=== PATIENT | female | born 1970 | race Caucasian/White ===

== ENCOUNTER 2021-11-14 17:47 | Observation (INO) | payer OTHER, SELFPAY ==
[2021-11-14 17:58] VITALS: BP 192/90; PULSE 86; RESP 12; TEMP 36.4; O2SAT 99; BMI 30.2
--- NOTE | 2021-11-14 18:22 | DI.RAD.S_ITS ---
PROCEDURE: XR CHEST 1V INDICATIONS: dizziness TECHNIQUE: One view of the chest was acquired. COMPARISON: None. FINDINGS: Surgical changes and devices: None. Lungs and pleura: Lungs are clear. No pleural effusions or pneumothorax. Mediastinum: Mediastinal contours appear normal. Heart size is normal. Bones and chest wall: No suspicious bony lesions. Overlying soft tissues appear unremarkable. IMPRESSION: No acute cardiopulmonary pathology. Dictated by: Luke Jeffery M.D. on 11/14/2021 at 18:59 Approved by: Luke Jeffery M.D. on 11/14/2021 at 19:00
--- NOTE | 2021-11-14 18:23 | DI.CT.S_ITS ---
PROCEDURE: CT ANGIO HEAD AND NECK INDICATIONS: dizziness, trouble with speech after neck manipulation TECHNIQUE: Pre-contrast 4.5 mm thick sections acquired from the foramen magnum to the vertex. After the administration of intravenous contrast, 1 mm thick sections acquired from the aortic arch through the [place] of [place]. Post-contrast 4.5 mm thick sections then re-acquired from the foramen magnum to the vertex. 3-dimensional mvhyhpk-izruhmlbs-orrtwitccm (MIP) and/or volume rendering reformats were acquired of the central intracranial vasculature and neck separately. For radiation dose reduction, the following was used: automated exposure control, adjustment of mA and/or kV according to patient size. COMPARISON: None. FINDINGS: Image quality: Excellent. BRAIN: CSF spaces: Ventricles are normal in size and shape. Basal cisterns are patent. No extra-axial fluid collections. Brain: No midline shift. No intracranial bleeds or masses. Santos-white matter interface appears intact. No area of abnormal enhancement is seen Skull and face: Calvarium and facial bones appear intact, without suspicious lesions. Orbits appear normal. Sinuses: Sinuses and mastoids are clear. HEAD CT ANGIOGRAPHY: Anterior circulation: Intracranial internal carotid arteries are normal in size and flow. The flow within the paired anterior cerebral arteries is normal and symmetric. The flow within the middle cerebral arteries is normal and symmetric. The anterior communicating artery is seen. No aneurysms are seen. Posterior circulation: Visualized portions of the vertebral arteries demonstrate normal caliber, and join to form a normal appearing basilar artery. Flow within the posterior cerebral arteries is normal and symmetric. No aneurysms are seen. NECK CT ANGIOGRAPHY: Carotid system: The great vessels demonstrate a conventional anatomy as they arise from the aortic arch. The origins of the common carotid arteries appear patent. The common carotid arteries demonstrate normal caliber and courses. The bifurcation regions are both widely patent. The internal carotid arteries demonstrate normal calibers and courses. Posterior circulation: The origins of the vertebral arteries both appear widely patent. The more superior extracranial portions of both vertebral arteries also demonstrate normal courses and calibers. They join to form a normal appearing basilar artery. Soft tissues: Visualized neck soft tissues demonstrate no suspicious abnormalities. Bones: No suspicious bony lesions. Visualized cervical spine appears normally aligned. IMPRESSION: 1. No CT evidence of acute intracranial pathology. No area of abnormal intracranial enhancement. 2. No hemodynamically significant stenosis or aneurysm is seen in intracranial circulation. 3. No hemodynamically significant stenosis is noted in bilateral neck arteries. No evidence of neck artery dissection. Any quantitative measurements of stenosis were performed using NASCET criteria. Dictated by: Luke Jfefery M.D. on 11/14/2021 at 19:30 Approved by: Luke Jeffery M.D. on 11/14/2021 at 19:32
--- NOTE | 2021-11-14 18:36 | ED.DIZZY ---
HPI - Dizziness General Chief Complaint: Dizziness Stated Complaint: DIZZY DOES NOT FEEL RIGHT Time Seen by Provider: 11/14/21 18:21 Mode of arrival: Ambulatory History of Present Illness HPI Narrative: 51-year-old female medical history presents with family in the chief complaint of multiple neurologic symptoms present earlier today that are now gone. She states that she woke up and was in her normal state of health and this morning went to see a therapist and had a manipulation of her neck. She denies any symptoms immediately thereafter but at about 430 this afternoon she developed dizziness with some blurred vision and trouble finding words. she denies obvious unilateral symptoms such as numbness, tingling or weakness. She states that the symptoms stated above lasted about 15 minutes and had largely improved by her arrival. She denies any chest pain or shortness of breath. She had some nausea but denies any vomiting. She has not activated as a code stroke given her lack of symptoms and no obvious unilateral signs Related Data Home Medications Medication Instructions Recorded Confirmed No Known Home Medications 11/14/21 11/14/21 Allergies Allergy/AdvReac Type Severity Reaction Status Date / Time No Known Drug Allergies Allergy Verified 11/14/21 18:00 Review of Systems Review of Systems Narrative: GENERAL: Denies chills, fatigue, malaise, fever, sweats. HEENT: Denies sinus pain, ear pain, sore throat, difficulty swallowing, dizziness. RESPIRATORY: Denies dyspnea, cough, wheezing, hemoptysis, sputum. CARDIOVASCULAR: Denies chest pain, palpitations, orthopnea, edema, GASTROINTESTINAL: Denies nausea, vomiting, abdominal pain, diarrhea, constipation, melena. : Denies dysuria, frequency, incontinence, hematuria, urinary retention. MUSCULOSKELETAL: denies weakness, joint pain, or bony pain SKIN: Denies rash, skin lesions, or other NEUROLOGIC: see HPI PSYCHIATRIC: No concerning psychosocial issues. 12 point review of systems is negative except for those stated above Patient History Surgical History H/O Achilles tendon repair Social History Smoking Status: Never smoker Smoking Status: Never smoker Substance Use Type: does not use Exam Narrative Exam Narrative: GENERAL: [51] year old patient appears stated age. Well-developed patient, in mild distress. HEAD: Atraumatic. Normocephalic. EYES: Pupils equal round and reactive. Extraocular motions intact. No scleral icterus. No injection or drainage. ENT: Nose without bleeding, purulent drainage. Throat without erythema, tonsillar hypertrophy or exudate. Airway patent. NECK: Trachea midline. Non tender CARDIOVASCULAR: Regular rate and rhythm without murmurs, gallops, or rubs. RESPIRATORY: Clear to auscultation. Breath sounds equal bilaterally. No wheezes, rales, or rhonchi. GASTROINTESTINAL: Abdomen soft, non-tender, nondistended. EXTREMITIES: No edema or joint tenderness. BACK: Nontender without deformity or crepitance. No flank tenderness. NEURO: AOx3. SKIN: No rash or erythema of visible areas Initial Vital Signs Initial Vital Signs: Vital Signs Temperature 97.6 F 11/14/21 17:58 Pulse Rate 86 11/14/21 17:58 Respiratory Rate 12 11/14/21 17:58 Blood Pressure 192/90 H 11/14/21 17:58 Pulse Oximetry 99 11/14/21 17:58 Course Course Course Narrative: Patient does feel significant improvement over the course of the visit, as noted she had very minimal symptoms at time arrival. Initial blood pressure in the 190s has improved to the 140s. she has story clean is not hypertensive and though her symptoms are largely improved there is some residual dizziness. We did discuss the likelihood of high blood pressure being because of all of her symptoms but the temporal relationship this not as convincing is out of like, furthermore difficulty with word finding and confusion are a bit atypical. Given her recent manipulation CT angiography of head and neck was performed which showed no significant findings. Patient requires hospitalization for complete stroke workup and ongoing management of symptoms and vital signs Orders Ordered: ED Orders 11/14/21 21:55 COVID19 -Nasal RAPID/Pre-Proc Stat Acetaminophen (Acetaminophen 325 Mg Tablet) 650 mg PO Q6HR PRN PRN Reason: Fever/Mild Pain (1-3) Aspirin (Aspirin Ec 81 Mg Tablet) 81 mg PO DAILY SISI Atorvastatin Calcium (Atorvastatin 20 Mg Tablet) 80 mg PO BEDTIME SISI Clopidogrel Bisulfate (Clopidogrel 75 Mg Tablet) 75 mg PO DAILY SISI Enoxaparin Sodium (Enoxaparin 40 Mg/0.4 Ml Syringe) 40 mg SUBCUT DAILY SISI Sodium Chloride (Normal Saline 0.9%) 1,000 mls @ 150 mls/hr IV CONT SISI Last Admin: 11/15/21 02:15 Dose: Not Given Documented by: YOVANI Naloxone HCl (Naloxone 0.4 Mg/Ml Vial) 0.2 mg IV Q2MIN PRN PRN Reason: Opiate Reversal Ondansetron HCl (Ondansetron 4 Mg/2 Ml Inj) 4 mg IV Q8HR PRN PRN Reason: Nausea And Vomiting Discontinued Medications Aspirin (Aspirin 81 Mg Chew Tab) 324 mg PO NOW ONE Stop: 11/14/21 21:32 Last Admin: 11/14/21 21:49 Dose: 324 mg Documented by: MAKENZIE Vital Signs Vital signs: Vital Signs - 8 hr 11/14/21 20:48 Temperature 98.4 F Pulse Rate 70 Respiratory Rate 18 Blood Pressure 160/86 H Pulse Oximetry 99 MDM - Dizziness Lab Data Result diagrams: 11/14/21 18:36 11/14/21 18:36 Labs: Lab Results 11/14/21 11/14/21 11/14/21 Range/Units 18:36 18:36 18:36 WBC 10.9 (4.5-11.0) X10^3/uL RBC 4.38 (4.0-5.2) X10^6/uL Hgb 13.7 (12.0-16.0) g/dL Hct 38.3 (36-46) % MCV 87.4 (80-100) fL MCH 31.2 (26-34) PG MCHC 35.7 (30-36) % RDW 13.4 (11.6-14.8) % Plt Count 304 (150-400) X10^3/uL Neut % (Auto) 71.4 (50-75) % Lymph % (Auto) 20.1 L (25-40) % [place] % (Auto) 6.7 (3-14) % Eos % (Auto) 0.9 L (2-4) % Baso % (Auto) 0.9 (0-2) % Neut # (Auto) 7800 H (6446-1581) /uL Lymph # (Auto) 2200 (7162-5248) /uL [place] # (Auto) 700 (0-900) /uL Eos # (Auto) 100 (0-450) /uL Baso # (Auto) 100 (0-100) /uL PT 11.5 (10.1-12.7) SECONDS INR 1.0 (0.9-1.3) Sodium 139 (137-145) mmol/L Potassium 3.6 (3.4-5.1) mmol/L Chloride 104 (98-107) mmol/L Carbon Dioxide 25 (22-32) mmol/L BUN 9 (7-17) mg/dL Creatinine 0.80 (0.52-1.04) mg/dL Estimated GFR > 60 (>60) mL/min BUN/Creatinine Ratio 11.3 (6-22) Glucose 110 H (70-100) mg/dL Hemoglobin A1c (4.0-6.0) % Calcium 8.5 (8.4-10.2) mg/dL Total Bilirubin 0.5 (0.2-1.3) mg/dL AST 25 (14-36) IU/L ALT 21 (<35) IU/L Alkaline Phosphatase 81 (38-126) U/L Troponin I < 0.012 (0.01-0.034) ng/mL Total Protein 7.2 (6.3-8.2) g/dL Albumin 4.4 (3.5-5.0) g/dL Globulin 2.8 (1.7-4.1) g/dL Albumin/Globulin Ratio 1.6 (1.0-2.8) SARS-CoV-2 (PCR) (Negative) 11/14/21 11/14/21 Range/Units 18:36 21:55 WBC (4.5-11.0) X10^3/uL RBC (4.0-5.2) X10^6/uL Hgb (12.0-16.0) g/dL Hct (36-46) % MCV (80-100) fL MCH (26-34) PG MCHC (30-36) % RDW (11.6-14.8) % Plt Count (150-400) X10^3/uL Neut % (Auto) (50-75) % Lymph % (Auto) (25-40) % [place] % (Auto) (3-14) % Eos % (Auto) (2-4) % Baso % (Auto) (0-2) % Neut # (Auto) (9872-2038) /uL Lymph # (Auto) (3504-7437) /uL [place] # (Auto) (0-900) /uL Eos # (Auto) (0-450) /uL Baso # (Auto) (0-100) /uL PT (10.1-12.7) SECONDS INR (0.9-1.3) Sodium (137-145) mmol/L Potassium (3.4-5.1) mmol/L Chloride (98-107) mmol/L Carbon Dioxide (22-32) mmol/L BUN (7-17) mg/dL Creatinine (0.52-1.04) mg/dL Estimated GFR (>60) mL/min BUN/Creatinine Ratio (6-22) Glucose (70-100) mg/dL Hemoglobin A1c 5.1 (4.0-6.0) % Calcium (8.4-10.2) mg/dL Total Bilirubin (0.2-1.3) mg/dL AST (14-36) IU/L ALT (<35) IU/L Alkaline Phosphatase (38-126) U/L Troponin I (0.01-0.034) ng/mL Total Protein (6.3-8.2) g/dL Albumin (3.5-5.0) g/dL Globulin (1.7-4.1) g/dL Albumin/Globulin Ratio (1.0-2.8) SARS-CoV-2 (PCR) Negative (Negative) Imaging Data Chest x-ray: Radiologist's Impression: Launch?[place] [address] XRay Report Signed Patient: Suzanne Weller MR#: [id number] : 1970 Acct:[id number] Age/Sex: 51 / F Date of Service: 11/14/21 Loc: ED Accession Number: [id number] ?? Procedure: XR chest 1V Ordering Provider: Valentino Zamora D.O. PROCEDURE:? XR CHEST 1V ? INDICATIONS:? dizziness ? TECHNIQUE:? One view of the chest was acquired.? ? COMPARISON:? None. ? FINDINGS:? ? Surgical changes and devices:? None.? ? Lungs and pleura:? Lungs are clear.? No pleural effusions or pneumothorax.? ? Mediastinum:? Mediastinal contours appear normal.? Heart size is normal.? ? Bones and chest wall:? No suspicious bony lesions.? Overlying soft tissues appear unremarkable.? ? IMPRESSION:? No acute cardiopulmonary pathology. ? ? Dictated by: Luke Jeffery M.D. on 11/14/2021 at 18:59 ? ? Approved by: Luke Jeffery M.D. on 11/14/2021 at 19:00? CTA - brain/neck: Radiologist's Impression: [address] [address] [address] Scan Report Signed Patient: Suzanne Weller MR#: [id number] : 1970 Acct:[id number] Age/Sex: 51 / F Date of Service: 11/14/21 Loc: ED Accession Number: [id number] ?? Procedure: CT angio head and neck Ordering Provider: Valentino Zamora D.O. PROCEDURE:? CT ANGIO HEAD AND NECK ? INDICATIONS:? dizziness, trouble with speech after neck manipulation ? TECHNIQUE:? Pre-contrast 4.5 mm thick sections acquired from the foramen magnum to the vertex.? After the administration of intravenous contrast, 1 mm thick sections acquired from the aortic arch through the [place] of [place].? Post-contrast 4.5 mm thick sections then re-acquired from the foramen magnum to the vertex.? 3-dimensional pdgzixz-ogvfroazc-lqsjokwztf (MIP) and/or volume rendering reformats were acquired of the central intracranial vasculature and neck separately. For radiation dose reduction, the following was used:? automated exposure control, adjustment of mA and/or kV according to patient size.? ? COMPARISON:? None. ? FINDINGS:? Image quality:? Excellent.? ? BRAIN:? CSF spaces:? Ventricles are normal in size and shape.? Basal cisterns are patent.? No extra-axial fluid collections.? ? Brain:? No midline shift.? No intracranial bleeds or masses.? Santos-white matter interface appears intact.? No area of abnormal enhancement is seen ? Skull and face:? Calvarium and facial bones appear intact, without suspicious lesions.? Orbits appear normal.? ? Sinuses:? Sinuses and mastoids are clear.? ? HEAD CT ANGIOGRAPHY:? Anterior circulation:? Intracranial internal carotid arteries are normal in size and flow.? The flow within the paired anterior cerebral arteries is normal and symmetric.? The flow within the middle cerebral arteries is normal and symmetric.? The anterior communicating artery is seen.? No aneurysms are seen.? ? Posterior circulation:? Visualized portions of the vertebral arteries demonstrate normal caliber, and join to form a normal appearing basilar artery.? Flow within the posterior cerebral arteries is normal and symmetric.? No aneurysms are seen.? ? NECK CT ANGIOGRAPHY:? Carotid system:? The great vessels demonstrate a conventional anatomy as they arise from the aortic arch.? The origins of the common carotid arteries appear patent.? The common carotid arteries demonstrate normal caliber and courses.? The bifurcation regions are both widely patent.? The internal carotid arteries demonstrate normal calibers and courses.? ? Posterior circulation:? The origins of the vertebral arteries both appear widely patent.? The more superior extracranial portions of both vertebral arteries also demonstrate normal courses and calibers.? They join to form a normal appearing basilar artery.? ? Soft tissues:? Visualized neck soft tissues demonstrate no suspicious abnormalities.? ? Bones:? No suspicious bony lesions.? Visualized cervical spine appears normally aligned.? IMPRESSION:? 1. No CT evidence of acute intracranial pathology.? No area of abnormal intracranial enhancement. 2. No hemodynamically significant stenosis or aneurysm is seen in intracranial circulation. 3. No hemodynamically significant stenosis is noted in bilateral neck arteries.? No evidence of neck artery dissection.? ? Any quantitative measurements of stenosis were performed using NASCET criteria.? ? ? Dictated by: Luke Jeffery M.D. on 11/14/2021 at 19:30 ? ? Approved by: Luke Jeffery M.D. on 11/14/2021 at 19:32 ? Discharge Plan Departure Patient Disposition: Admitted as Observation Clinical Impression: Transient cerebral ischemia Admit Date/Time: 11/14/21 22:04 Admit Provider: Shoshana Mo
[2021-11-14 18:54] LABS: Prothrombin Time 11.5 SECONDS (10.1-12.7)
[2021-11-14 18:56] LABS: Add Manual Diff / Slide Review NO; Basophils Absolute Auto 100 /uL (0-100); Basophils Percent Auto 0.9 % (0-2); Eosinophils Absolute Auto 100 /uL (0-450); Eosinophils Percent Auto 0.9 % (2-4); Hematocrit 38.3 % (36-46); Hemoglobin 13.7 g/dL (12.0-16.0); Lymphocytes Absolute Auto 2200 /uL (1100-4500); Lymphocytes Percent Auto 20.1 % (25-40); Mean Corpuscular HGB Conc 35.7 % (30-36); Mean Corpuscular Hemoglobin 31.2 PG (26-34); Mean Corpuscular Volume 87.4 fL (80-100); Monocytes Absolute Auto 700 /uL (0-900); Monocytes Percent Auto 6.7 % (3-14); Neutrophils Absolute Auto 7800 /uL (1500-7000); Neutrophils Percent Auto 71.4 % (50-75); Platelet Count 304 X10^3/uL (150-400); Red Blood Cell Count 4.38 X10^6/uL (4.0-5.2); Red Cell Distribution Width 13.4 % (11.6-14.8); White Blood Cell Count 10.9 X10^3/uL (4.5-11.0)
[2021-11-14 19:04] LABS: Alanine Aminotransferase 21 IU/L (<35); Albumin 4.4 g/dL (3.5-5.0); Albumin Globulin Ratio 1.6 (1.0-2.8); Alkaline Phosphatase 81 U/L (38-126); Aspartate Aminotransferase 25 IU/L (14-36); BUN Creatinine Ratio 11.3 (6-22); Bilirubin Total 0.5 mg/dL (0.2-1.3); Blood Urea Nitrogen 9 mg/dL (7-17); Calcium 8.5 mg/dL (8.4-10.2); Carbon Dioxide 25 mmol/L (22-32); Chloride 104 mmol/L (98-107); Estimated Glomerular Filt Rate > 60 mL/min (>60); Globulin 2.8 g/dL (1.7-4.1); Glucose 110 mg/dL (70-100); HEMOLYSIS < 15 (0-50); Potassium 3.6 mmol/L (3.4-5.1); Sodium 139 mmol/L (137-145); Total Protein 7.2 g/dL (6.3-8.2)
[2021-11-14 19:14] LABS: Troponin I < 0.012 ng/mL (0.01-0.034)
[2021-11-14 20:48] VITALS: BP 160/86; PULSE 70; RESP 18; TEMP 36.9; O2SAT 99
[2021-11-14] MEDS: ASPIRIN 81 MG CHEW TAB 324 MG PO (21:49)
--- NOTE | 2021-11-14 21:58 | PC.NURSE ---
Patient had her neck manipulated around 0830 this morning, she felt find up until about 1630 had dizziness and abnormal speech. Upon arrival to ER speech was clear however patient felt like she could pass out and still having a hard time talking Patient reports blood pressure is normally low.
[2021-11-14 22:12] LABS: COVID19 -Nasal RAPID Negative (Negative)
[2021-11-14 23:18] VITALS: BMI 30.2
[2021-11-14 23:40] VITALS: BP 149/79; PULSE 65; RESP 16; TEMP 36.1; O2SAT 98
--- NOTE | 2021-11-15 01:02 | P.HP_ITS ---
History of Present Illness History of Present Illness Date Patient Seen: 11/15/21 Time Patient Seen: 01:13 Chief complaint: Suspected TIA Narrative: Suzanne Magaña is a 51-year-old female who lives in [place] and was in town at her parent's summer cabin in [facility] was returning to [place] when she had sudden onset dizziness, blurred vision, and word-finding issuesm her stated she was speaking gibberish. Her symptoms resolved by the time she arrived at the emergency department. She stated that the symptoms started at 4:30 a.m. this afternoon and by the time she arrived to the emergency department she was asymptomatic and did not meet criteria for thrombolysis. She said that she underwent a Shiatsu session and her Shiatsu practitioner manipulated manipulated her neck with high velocity adjustments around 0830 this morning of 11/14. She felt find up until about 1630, then experienced dizziness and abnormal speech. Upon arrival to ER speech was clear however patient felt like she could pass out and still having a hard time talking.? Patient reports her blood pressure is normally low, though on presentation to the ED, it was 192/90. Chest x-ray ordered in the ED was negative for any acute cardiopulmonary process. CTA of the head neck reported no evidence of acute intracranial pathology, no hemodynamically significant stenosis or aneurysm in the intracranial circulation and no hemodynamically significant stenosis in the bilateral neck arteries or evidence of neck artery dissection. She is afebrile, blood pressure 144/73, heart rate 63, respiratory rate 17, oxygen saturation 98% on room air, she weighs 74.5 kg with a BMI of 30.2. CBC is unremarkable, she had a glucose of 110, A1c is 5.1, and COVID-19 PCR is negative. Lipid panel is pending. Patient History Surgical History H/O Achilles tendon repair Family & Social History Family History (Updated 11/15/21 @ 06:18 by ASHLEY Roberts) Father CVA (cerebral vascular accident) Mother Alive and well Safety & Behavioral: Feels Safe in Current Yes Environment Been Physically Hurt or No Threatened By a Person Tobacco & Substance use: Smoking Status Never smoker Substance Use Type does not use Meds Home Medications and Allergies Home Medications Medication Instructions Recorded Confirmed Type No Known Home Medications 11/14/21 11/14/21 History Allergies Allergy/AdvReac Type Severity Reaction Status Date / Time No Known Drug Allergies Allergy Verified 11/14/21 18:00 Review of Systems Review of Systems ROS: Yes All systems reviewed with the patient and are negative except as otherwise documented Exam Vital Signs (past 8 hours): - 11/14/21 17:58 11/14/21 20:48 Temperature 97.6 F 98.4 F Pulse Rate 86 70 Respiratory Rate 12 18 Blood Pressure 192/90 H 160/86 H Pulse Oximetry 99 99 Oxygen Delivery Method Room Air Narrative Exam Narrative: Gen: Alert, oriented, well-developed 51 y.o. female, healthy appearing HEENT: normocephalic, atraumatic, conjunctiva clear, sclera non-icteric, oral mucosa pink and moist Neck: supple, full ROM, no JVD, trachea is midline Resp: Lungs CTA, non-labored breathing CV: RRR, no murmur or rubs Abd: soft, non-tender, normoactive BTs Skin: no lesions or rashes, dry and intact Neuro: Alert and oriented X 4 w/no focal deficits. Speech clear and coherent. Extremities: moves all 4 extremities, is ambulatory, negative Mikayla?s sign Psyche: normal mood and affect. Objective Labs Result Diagrams: 11/14/21 18:36 11/14/21 18:36 Labs: Laboratory Results - last 24 hr 11/14/21 11/14/21 11/14/21 18:36 18:36 18:36 WBC 10.9 RBC 4.38 Hgb 13.7 Hct 38.3 MCV 87.4 MCH 31.2 MCHC 35.7 RDW 13.4 Plt Count 304 Neut % (Auto) 71.4 Lymph % (Auto) 20.1 L [place] % (Auto) 6.7 Eos % (Auto) 0.9 L Baso % (Auto) 0.9 Neut # (Auto) 7800 H Lymph # (Auto) 2200 [place] # (Auto) 700 Eos # (Auto) 100 Baso # (Auto) 100 PT 11.5 INR 1.0 Sodium 139 Potassium 3.6 Chloride 104 Carbon Dioxide 25 BUN 9 Creatinine 0.80 Estimated GFR > 60 BUN/Creatinine Ratio 11.3 Glucose 110 H Calcium 8.5 Total Bilirubin 0.5 AST 25 ALT 21 Alkaline Phosphatase 81 Troponin I < 0.012 Total Protein 7.2 Albumin 4.4 Globulin 2.8 Albumin/Globulin Ratio 1.6 SARS-CoV-2 (PCR) 11/14/21 21:55 WBC RBC Hgb Hct MCV MCH MCHC RDW Plt Count Neut % (Auto) Lymph % (Auto) [place] % (Auto) Eos % (Auto) Baso % (Auto) Neut # (Auto) Lymph # (Auto) [place] # (Auto) Eos # (Auto) Baso # (Auto) PT INR Sodium Potassium Chloride Carbon Dioxide BUN Creatinine Estimated GFR BUN/Creatinine Ratio Glucose Calcium Total Bilirubin AST ALT Alkaline Phosphatase Troponin I Total Protein Albumin Globulin Albumin/Globulin Ratio SARS-CoV-2 (PCR) Negative Assessment & Plan Assessment & Plan narrative: Suzanne Weller is observed overnight for completion of a TIA workup. 1. Rule out TIA * Cardiac telemetry * NIH score greater than 5 [X]no NIH scoring and neuro checks q 4 hours * Dual antiplatelet therapy: No[] Yes[X] initiate dual antiplatelet therapy with clopidogrel 75 mg p.o. daily and aspirin 81 mg p.o. daily * MR stroke scheduled for 11/15 * Complete Echo with bubble study for * ST evaluation 2. Hypertension, acute with an admission bp of 192/90, present on admission * Allow for permissive hypertension of 220/110 HR 60 to allow for brain perfusion * IV labetolol if his systolic exceeds 220 or diastolic greater than 105. 3. HLD * Fasting lipid panel, pending for 0500 labs * Atorvastatin 40 mg po at bedtime 4. Risk stratification * Fasting lipid panel pending for the morning * A1c is 5.1 %,not diabetic VTE Prophylaxis: Wells risk score 0 [X]Enoxaparin 40 mg subQ once daily Bilateral SCDs Patient is placed into observation as her stay is not expected to exceed 2 midnights. FEN: IV fluids: saline lock, diet: heart healthy, labs: CBC, C/BMP, liver enzymes, [facility] None Dispo: Likely d/c to home w/f/u with her PCP Code status: Full Code as discussed with the patient who identifies her , Ruth her surrogate and POA. [X] I have utilized all available immediate resources to obtain, update, or review of the patient's current medications COVID-19 COVID-19 status: Negative Result date/Date tested (Pos, Neg/Pending): 11/14/21 Quality VTE Deep Vein Thrombosis/Pulmonary Embolism Present on Admission: No MIPS - Admit I confirm the patient?s Advance Care Plan is present, Code status is documented, Surrogate decision maker is in patient?s record [If Yes, STOP here]: Yes MIPS - DC The patient has current or prior documentation of left ventricular ejection fraction (LVEF) less than 40%, or moderate or severely depressed left ventricular systolic function.: No
--- NOTE | 2021-11-15 01:03 | DI.MRI.S_ITS ---
PROCEDURE: MR HEAD/BRAIN WO CON INDICATIONS: transient aphasia TECHNIQUE: Noncontrast axial T1 spin echo, axial T2 fast spin echo, sagittal and axial FLAIR, coronal T2 fast spin echo, axial gradient echo, axial diffusion and ADC through the brain. COMPARISON: None. FINDINGS: Image quality: Excellent. CSF Spaces: Basal cisterns are patent. No extra-axial fluid collections. Ventricles are normal in size and shape. Brain: No intracranial masses or hemorrhage. [place]/white matter interface is normal. Brainstem appears normal. Diffusion-weighted images demonstrate no acute infarct. Normal intravascular flow voids are present. Skull and face: Calvarium has normal marrow signal. Orbits appear normal. Sinuses: Sinuses and mastoids are clear. IMPRESSION: Normal MRI of the brain Approved by: Joe Rowland M.D. on 11/15/2021 at 9:05
--- NOTE | 2021-11-15 01:10 | DI.ECHO.S_ITS ---
[facility] +---------+ : : [address] [place] : : : : [id number] : : : : Phone: [phone]+ Echocardiogram Report + + :Name: CR FAM Study Date: 11/15/2021 Height: 62 in : :[facility] ReadingLocation: Weight: 164 lb : : Gender: Female BSA: 1.8 m2 : :: 1970 Age: 51 yrs BP: 121/71 mmHg: :Reason For Study: TIA : :Ordering Physician: JOSE JUAN, : :SHAKEEL Performed By: Zane Shahid : :Referring: SHAKEEL MANZANO : + + Interpretation Summary Normal sinus rhythm. Normal LV size, wall thickness, wall motion and LV systolic function. EF is 60-65%. Normal chamber sizes. No significant valvular abnormalities. No PFO based on bubble study. No source of embolism found. Procedure: A two-dimensional transthoracic echocardiogram with color flow and Doppler was performed. The study quality was technically adequate. There is no prior echocardiogram noted for this patient. A saline contrast injection was performed to assess for cardiac shunting. Left Ventricle: The left ventricle is normal in size and wall thickness. Left ventricular systolic function is normal. The ejection fraction is estimated to be 55-60%. There are no focal wall motion abnormalities. Diastolic parameters suggest probable normal left ventricular diastolic function and normal filling pressures. Right Ventricle: The right ventricle is normal in size and function. Atria: Both atria are normal in size. The interatrial septum grossly appears intact with no obvious evidence for an atrial septal defect. Injection of contrast documented no interatrial shunt. Mitral Valve: The mitral valve is normal in structure and function. There is no mitral regurgitation noted. Aortic Valve: The aortic valve is normal in structure and function. No aortic regurgitation is present. Tricuspid Valve: The tricuspid valve is normal in structure and function. No tricuspid regurgitation. Pulmonary artery pressures cannot be estimated because of the lack of a measurable TR jet velocity. Pulmonic Valve: The pulmonic valve is normal in structure and function. There is trace pulmonic regurgitation. Great Vessels: The aortic root is normal size. The dimensions of the ascending aorta are normal. The IVC is of normal diameter and collapses greater than 50% with a sniff. This suggests a low right atrial pressure of 3 mm Hg. Pericardium/ Pleura There is no pericardial effusion. There is no pleural effusion. MMode/2D Measurements & Calculations LVIDd: 4.9 cm LVOT diam: 1.9 cm LVIDs: 3.5 cm Ao root diam: 2.9 cm FS: 29.3 % asc Aorta Diam: 3.3 cm IVSd: 0.98 cm LVPWd: 0.79 cm LV helms. diameter/BSA (cm/m^2): 2.8 LV sys. diameter/BSA (cm/m^2): 2.0 LA A2 area: 19.3 cm2 RA long axis: 4.3 cm LA A4 area: 16.7 cm2 RA area: 12.8 cm2 LA length (vol): 4.7 cm RA vol: 32.1 ml LA vol: 57.6 ml RA : 18.3 ml/m2 LA vol index: 32.8 ml/m2 TAPSE: 2.6 cm Doppler Measurements & Calculations Ao V2 max: 144.4 cm/sec LVOT Max Maury: 116.4 cm/sec Ao V2 mean: 100.8 cm/sec LV V1 max P.4 mmHg Ao max P.3 mmHg LV V1 VTI: 23.9 cm Ao mean P.5 mmHg SIRISHA(I,D): 2.5 cm2 Ao V2 VTI: 27.3 cm SIRISHA(V,D): 2.3 cm2 sev ratio: 0.88 SIRISHA indexed to BSA (cm^2/m^2): 1.4 MV E max maury: 83.1 cm/sec SV(LVOT): 68.4 ml MV A max maury: 76.7 cm/sec MV E/A: 1.1 Med Peak E' Maury: 6.7 cm/sec E/E' med: 12.5 Lat Peak E' Maury: 10.2 cm/sec E/E' lat: 8.1 E/e' average: 10.3 MV dec time: 0.21 sec Electronically signed by: Katie Mo M.D. on Reading Physician:11/15/2021 01:19 PM
[2021-11-15 01:50] LABS: Hemoglobin A1C% w Est Avg Glu 5.1 % (4.0-6.0)
[2021-11-15 05:00] VITALS: BP 144/73; PULSE 63; RESP 17; TEMP 36.1; O2SAT 98
[2021-11-15 06:26] LABS: BUN Creatinine Ratio 9.1 (6-22); Blood Urea Nitrogen 7 mg/dL (7-17); Calcium 8.6 mg/dL (8.4-10.2); Carbon Dioxide 27 mmol/L (22-32); Chloride 104 mmol/L (98-107); Estimated Glomerular Filt Rate > 60 mL/min (>60); Glucose 138 mg/dL (70-100); HEMOLYSIS < 15 (0-50); Hematocrit 37.7 % (36-46); Hemoglobin 13.1 g/dL (12.0-16.0); Mean Corpuscular HGB Conc 34.6 % (30-36); Mean Corpuscular Hemoglobin 30.4 PG (26-34); Mean Corpuscular Volume 87.9 fL (80-100); Platelet Count 262 X10^3/uL (150-400); Potassium 3.8 mmol/L (3.4-5.1); Red Blood Cell Count 4.29 X10^6/uL (4.0-5.2); Red Cell Distribution Width 13.5 % (11.6-14.8); Sodium 137 mmol/L (137-145); White Blood Cell Count 7.8 X10^3/uL (4.5-11.0)
[2021-11-15 06:30] LABS: Add Manual Diff / Slide Review YES
[2021-11-15 06:33] LABS: Cholesterol 151 mg/dL (140-199); HDL Cholesterol 47 mg/dL (40-60); LDL Cholesterol Calculated 80 mg/dL (<100); Magnesium 1.9 mg/dL (1.6-2.3); Triglycerides 121 mg/dL (35-150)
[2021-11-15 07:06] LABS: Neutrophils Absolute Manual 4992 /uL (3000-5900); Total Cells Counted 100
[2021-11-15 07:08] LABS: RBC Morphology Normal Morphology
[2021-11-15 08:33] VITALS: BP 121/71; PULSE 66; RESP 14; TEMP 36.1; O2SAT 96
[2021-11-15] MEDS: ENOXAPARIN 40 MG/0.4 ML SYRINGE SUBCUT (09:01)
[2021-11-15] MEDS: CLOPIDOGREL 75 MG TABLET PO (09:01)
[2021-11-15] MEDS: ASPIRIN EC 81 MG TABLET PO (09:01)
--- NOTE | 2021-11-15 10:37 | P.DS_ITS ---
History of Present Illness History of Present Illness Date Patient Seen: 11/15/21 Chief complaint: Suspected TIA Narrative: History of Present Illness History of Present Illness Date Patient Seen: 11/15/21 Time Patient Seen: 01:13 Chief complaint: Suspected TIA Narrative: Suzanne Magaña is a 51-year-old female who lives in [place] and was in town at her parent's summer cabin in [facility] [place] returning to [place] when she had sudden onset dizziness, blurred vision, and word-finding issuesm her stated she was speaking gibberish.? Her symptoms resolved by the time she arrived at the emergency department.? She stated that the symptoms started at 4:30 a.m. this afternoon and by the time she arrived to the emergency department she was asymptomatic and did not meet criteria for thrombolysis.? She said that she underwent a Shiatsu session and her Shiatsu practitioner manipulated manipulated her neck with high velocity adjustments around 0830 this morning of 11/14. She felt find up until about 1630, then experienced dizziness and abnormal speech. Upon arrival to ER speech was clear however patient felt like she could pass out and still having a hard time talking.? Patient reports her blood pressure is normally low, though on presentation to the ED, it was 192/90. Chest x-ray ordered in the ED was negative for any acute cardiopulmonary pro cess.? CTA of the head neck reported no evidence of acute intracranial pathology, no hemodynamically significant stenosis or aneurysm in the intracranial circulation and no hemodynamically significant stenosis in the bilateral neck arteries or evidence of neck artery dissection.? She is afebrile, blood pressure 144/73, heart rate 63, respiratory rate 17, oxygen saturation 98% on room air, she weighs 74.5 kg with a BMI of 30.2.? CBC is unremarkable, she had a glucose of 110, A1c is 5.1, and COVID-19 PCR is negative.? Lipid panel is pending. Patient History Discharge Providers Provider Date of admission: 11/14/21 22:04 Discharge Date: 11/15/21 Primary care physician: NONE Consults: 11/15/21 01:10 Consult to Physical Therapy Evaluate & Treat Comment: Physician Instructions: Evaluate and Treat Consult to Speech Therapy Evaluate & Treat Comment: Physician Instructions: Evaluate and treat Discharge provider: Kashif Hubbard DO Summary Hospital Course Discharge Diagnosis: TIA / CVA RULED OUT OBESITY. BMI OF 30. LIFESTYLE CHANGES RECOMMENDED Hospital Course: THIS IS A 51-YEAR-OLD FEMALE ADMITTED TO THE HOSPITAL REPORTED SUDDEN ONSET OF DIZZINESS AND WORDS FINDING ISSUES WHICH HAS RESOLVED. SHE REPORTED THAT SHE WENT AND HAD A MASSAGE. AND AFTER , SHE REPORTEDSOME DIZZINESS AND ALSO SOME HIGHER IS SLIGHT DIFFICULTY WITH FINDING HER WORDS. AT THIS TIME, WORKUP HAS BEEN NEGATIVE. THERE ARE NO FINDINGS ON CT SCAN OR MRI REASON OF HER SYMPTOMS ARE UNCLEAR. TIA IS NOT SUSPECTED HOWEVER. SHE IS BACK TO HER BASELINE. LABS ARE FAIRLY STABLE. NO SIGNIFICANT ABNORMALITY NOTED FOR VITAL SIGNS. LIPIDS A FAIRLY STABLE WELL WITH LDL LESS THAN 100. SHE WILL BE DISCHARGED TO HOME TODAY. ADDITIONAL WORKUP AND MANAGEMENT WILL BE DEFERRED TO OUTPATIENT PROVIDERS Status at Discharge Cognitive/behavioral status at discharge: oriented Functional status at discharge: independent ambulation Overall status at discharge: patient is back to baseline Time Spent with Patient Time spent: Greater than 30 minutes Exam Vital Signs (past 8 hours): - 11/15/21 05:00 11/15/21 08:33 Temperature 97 F L 97 F L Pulse Rate 63 66 Respiratory Rate 17 14 Blood Pressure 144/73 H 121/71 Pulse Oximetry 98 96 Oxygen Delivery Method Room Air Oxygen Flow Rate 0 Narrative Exam Narrative: NO ACUTE DISTRESS. PATIENT IS ALERT ORIENTED X3. VITAL SIGNS STABLE HEAD ATRAUMATIC NORMOCEPHALIC NECK : SUPPLE WITHOUT ADENOPATHY NO CAROTID BRUITS EYE: EOMI, PERRLA, NORMAL CONJUNCTIVA; NO JAUNDICE CHEST: REGULAR RATE. NO RUBS. PMI IS NON DISPLACED. NO MURMURS; NORMAL S1- S2 PULMONARY: DECREASED BS OVER THE BASES. MILD BIBASILAR CRACKLES NOTED; NO INCREASED DULLNESS TO PERCUSSION ABDOMEN: SOFT. NONTENDER. NONDISTENDED. BOWEL SOUNDS ARE PRESENT IN ALL 4 QUADRANTS. NO MASS. EXTREMITIES: NO EDEMA.. NO CYANOSIS CLUBBING NOTED. NEURO: CRANIAL NERVES 2-12 GROSSLY INTACT. NO FOCAL NEUROLOGICAL DEFICIT NOTED. MSK: NORMAL RANGE OF MOTION FOR AGE. NO JOINT EFFUSION. SKIN: NORMAL FOR ETHNICITY; NO ECCHYMOSIS. NO LESION. GOOD TURGOR.; NO RASHES : NORMAL EXTERNAL GENITALIA. PSYCH : APPROPRIATE MOOD AND AFFECT. ALERT AWAKE ORIENTED X3 Objective Labs Result Diagrams: 11/15/21 06:00 11/15/21 06:00 Labs: Laboratory Results - last 24 hr 11/14/21 11/14/21 11/14/21 18:36 18:36 18:36 WBC 10.9 RBC 4.38 Hgb 13.7 Hct 38.3 MCV 87.4 MCH 31.2 MCHC 35.7 RDW 13.4 Plt Count 304 Neut % (Auto) 71.4 Lymph % (Auto) 20.1 L Eaton % (Auto) 6.7 Eos % (Auto) 0.9 L Baso % (Auto) 0.9 Neut # (Auto) 7800 H Lymph # (Auto) 2200 Eaton # (Auto) 700 Eos # (Auto) 100 Baso # (Auto) 100 Total Counted Seg Neutrophils % Lymphocytes % (Manual) Monocytes % (Manual) Eosinophils % (Manual) Basophils % (Manual) Neutrophils # (Manual) RBC Morphology PT 11.5 INR 1.0 Sodium 139 Potassium 3.6 Chloride 104 Carbon Dioxide 25 BUN 9 Creatinine 0.80 Estimated GFR > 60 BUN/Creatinine Ratio 11.3 Glucose 110 H Hemoglobin A1c Calcium 8.5 Magnesium Total Bilirubin 0.5 AST 25 ALT 21 Alkaline Phosphatase 81 Troponin I < 0.012 Total Protein 7.2 Albumin 4.4 Globulin 2.8 Albumin/Globulin Ratio 1.6 Triglycerides Cholesterol LDL Cholesterol, Calc HDL Cholesterol SARS-CoV-2 (PCR) 11/14/21 11/14/21 11/15/21 18:36 21:55 06:00 WBC RBC Hgb Hct MCV MCH MCHC RDW Plt Count Neut % (Auto) Lymph % (Auto) Eaton % (Auto) Eos % (Auto) Baso % (Auto) Neut # (Auto) Lymph # (Auto) Eaton # (Auto) Eos # (Auto) Baso # (Auto) Total Counted Seg Neutrophils % Lymphocytes % (Manual) Monocytes % (Manual) Eosinophils % (Manual) Basophils % (Manual) Neutrophils # (Manual) RBC Morphology PT INR Sodium 137 Potassium 3.8 Chloride 104 Carbon Dioxide 27 BUN 7 Creatinine 0.77 Estimated GFR > 60 BUN/Creatinine Ratio 9.1 Glucose 138 H Hemoglobin A1c 5.1 Calcium 8.6 Magnesium Total Bilirubin AST ALT Alkaline Phosphatase Troponin I Total Protein Albumin Globulin Albumin/Globulin Ratio Triglycerides Cholesterol LDL Cholesterol, Calc HDL Cholesterol SARS-CoV-2 (PCR) Negative 11/15/21 11/15/21 06:00 06:00 WBC 7.8 RBC 4.29 Hgb 13.1 Hct 37.7 MCV 87.9 MCH 30.4 MCHC 34.6 RDW 13.5 Plt Count 262 Neut % (Auto) Not Reportable Lymph % (Auto) Not Reportable Eaton % (Auto) Not Reportable Eos % (Auto) Not Reportable Baso % (Auto) Not Reportable Neut # (Auto) Lymph # (Auto) Not Reportable Eaton # (Auto) Not Reportable Eos # (Auto) Baso # (Auto) Not Reportable Total Counted 100 Seg Neutrophils % 64.0 Lymphocytes % (Manual) 31.0 Monocytes % (Manual) 3.0 Eosinophils % (Manual) 1.0 L Basophils % (Manual) 1.0 Neutrophils # (Manual) 4992 RBC Morphology Normal morphology PT INR Sodium Potassium Chloride Carbon Dioxide BUN Creatinine Estimated GFR BUN/Creatinine Ratio Glucose Hemoglobin A1c Calcium Magnesium 1.9 Total Bilirubin AST ALT Alkaline Phosphatase Troponin I Total Protein Albumin Globulin Albumin/Globulin Ratio Triglycerides 121 Cholesterol 151 LDL Cholesterol, Calc 80 HDL Cholesterol 47 SARS-CoV-2 (PCR) [facility] Surgical History H/O Achilles tendon repair Family History (Updated 11/15/21 @ 06:18 by ASHLEY Roberts) Father CVA (cerebral vascular accident) Mother Alive and well Social History Smoking Status: Never smoker Discharge Plan Discharge Plan Patient Disposition: Home Discharge orders & Medications Prescriptions: No Action No Known Home Medications 0RF Diet/Activity/Treatments Diet: Regular Activity: TOLERATED Other treatments: FOLLOW-UP WITH PRIMARY CARE PHYSICIAN WITHIN 2-4 WEEKS Discharge Data Attending Provider: Shoshana Mo VTE Deep Vein Thrombosis/Pulmonary Embolism Present on Admission: No
--- NOTE | 2021-11-15 10:58 | ST.IPIE ---
Visit Care Team Role Provider Type Valentino Zamora DO Emergency Provider Physician Referring Provider Specialty: Emergency Medicine Address: [address] [place] [address], [id number] Email: [email or web address] ASHLEY Roberts Admit Provider Physician Attending Provider Specialty: Internal Medicine Address: [address] [place] [address], [id number] Email: [email or web address] Past Medical History (Last Reviewed 11/15/21 @ 06:17 by ASHLEY Roberts) H/O Achilles tendon repair (Medical) ST IP Initial Evaluation Report WELL DIGGER Motor Speech Evaluation Start: 11/15/21 10:54 Freq: Status: Active Protocol: Document 11/15/21 10:54 MG (Rec: 11/15/21 10:58 MG [id number]) Motor Speech Evaluation Session Time Visit Start Time 10:15 Visit Stop Time 10:30 Total Visit Minutes 15 Setting Setting Acute Care Patient History Source: [employer] Patient History Pt is a 51-year-old female who lives in [place] and was in town [place] her parent[place] [facility] [place] was returning to [place] when she had sudden onset dizziness, blurred vision, and word- finding issues. Her stated she was speaking gibberish. Her symptoms resolved by the time she arrived at the emergency department. She stated that the symptoms started at 4:30 a .m. this afternoon and by the time she arrived to the emergency department she was asymptomatic and did not meet criteria for thrombolysis. She said that she underwent a Shiatsu session and her Shiatsu practitioner manipulated her neck with high velocity adjustments around 0830 this morning of 11/14. She felt find up until about 1630 , then experienced dizziness and abnormal speech. Upon arrival to ER speech was clear however patient felt like she could pass out and still having a hard time talking.? Patient reports her blood pressure is normally low, though on presentation to the ED, it was 192/90. Mental Status Mental Status Alert,Responsive,Cooperative Subjective Observations Subjective Pt was resting in bed when WELL DIGGER entered the room. Pt reported no concerns with her speech/ swallowing at this time. Oral Motor Lips Function WNL Tongue Function WNL Jaw Function WNL Soft Palate Function WNL Respiration/Phonation Phonation Quality WNL Conversation Quality WNL Duration WNL Function WNL Loudness WNL Diadochokinetic Rates P^ Quality WNL T^ Quality WNL K^ Quality WNL P^T^K^ Quality WNL Speech Intelligibility Awareness/Strategy Use Findings Details Motor Speech Function WNL Type of Impairment No impairment noted Assessment Details Assessment No concerns noted through evaluation. Pt reports that she no longer has word finding difficulties and did not appear to have any deficits in speech/swallowing at this time. Swallow screen resulting in no concerns. Pt answered all questions appropriately with this WELL DIGGER. Prognosis Rehabilitation Potential Excellent Recommendations Treatment Recommended No Patient/Family Education Education Described results of evaluation,Patient Understanding
--- NOTE | 2021-11-15 12:00 | PC.NURSE ---
Echo and MRI completed. Discharge orders written. IV d/c'd intact. Tele monitor d/c'd. Discharge instructions given to Pt and her . PT states understanding. Pt escorted to private care by MAKENNA morgan via w/c.
--- NOTE | 2021-11-15 12:50 | PT-IP ANOTE ---
EMR reviewed. checked on pt and pt refused PT. stated that she is moving independently in her room and does not need PT services.
--- NOTE | 2021-11-15 16:17 | CM.DPNOTE ---
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
== END 2021-11-15 11:52 | disposition home or self-care (01) ==
LOC: ED 18:21 → AC 22:06
PROVIDERS: Admitting Provider Nurse Practitioner Family; Emergency Provider Emergency Medicine; Referring Provider Emergency Medicine; Visit Provider Nurse Practitioner Family
DX: R42 Dizziness and giddiness (principal); R47.89 Other speech disturbances; I10 Essential (primary) hypertension; E78.5 Hyperlipidemia, unspecified; E66.9 Obesity, unspecified; Z68.30 Body mass index [BMI] 30.0-30.9, adult; Z20.822 Contact with and (suspected) exposure to COVID-19
CPT/HCPCS: 36415; 70496; 70498; 70551; 71045; 80048; 80053; 80061; 83036; 83735; 84484; 85007; 85025; 85610; 87635; 92522; 93005; 93010; 93306; 96372; 99284; C9803; G0378; J1650; Q9967